=== PATIENT | male | born 1950 | race Caucasian/White ===

== ENCOUNTER 2018-08-24 08:58 | Day surgery (SDC) | payer OTHER ==
[2018-08-24] MEDS ORDERED: SOD CHLORIDE 0.9% 1,000 ML IV (10:00)
[2018-08-24] MEDS ORDERED: CEFAZOLIN 2 GM/50 ML (PMX) 50 ML IVPB (10:00)
[2018-08-24] MEDS ORDERED: DIPHENHYDRAMINE 50 MG INJ IV (11:30)
[2018-08-24] MEDS ORDERED: HYDROmorphONE 1 MG/5 ML IV SYRINGE IV (11:30)
[2018-08-24] MEDS ORDERED: FENTAnyl 50 MCG/ML VIAL IV ×3 (11:30)
[2018-08-24] MEDS ORDERED: ALBUTEROL 0.083% (NEB) 2.5 MG/3 ML AMP HHN (11:30)
[2018-08-24] MEDS ORDERED: METOCLOPRAMIDE 10 MG INJ IV (11:30)
[2018-08-24] MEDS ORDERED: ROPIVACAINE 0.5 % 30 ML VIAL (11:51)
[2018-08-24] MEDS ORDERED: FENTAnyl 50 MCG/ML VIAL (11:51)
[2018-08-24] MEDS ORDERED: PHENYLephrine 10 MG INJ (12:28)
[2018-08-24] MEDS ORDERED: PHENYLephrine (100 MCG/ML) 5ML SYG (12:28)
[2018-08-24] MEDS ORDERED: CEFAZOLIN 1 GM INJ (12:57)
[2018-08-24] MEDS ORDERED: PROPOFOL 20 ML (12:57)
[2018-08-24] MEDS ORDERED: GLYCOPYRROLATE 0.4 MG INJ (12:57)
[2018-08-24] MEDS ORDERED: NEOSTIGMINE 10 MG INJ (12:57)
[2018-08-24] MEDS ORDERED: ROCURONIUM 50 MG INJ (12:57)
[2018-08-24] MEDS ORDERED: HYDROCODONE/APAP (5/325) TAB PO (13:00)
[2018-08-24] MEDS: HYDROmorphONE 1 MG/5 ML IV SYRINGE IV ×2 (13:24→13:39)
[2018-08-24] MEDS: MEPERIDINE 25 MG INJ IV (13:25)
[2018-08-24] MEDS: ONDANSETRON 4 MG INJ IV (13:25)
== END 2018-08-24 14:25 | disposition home or self-care (01) ==
LOC: SDS 08:58
DX: K80.20 Calculus of gallbladder without cholecystitis without obstruction (principal); I10 Essential (primary) hypertension; E78.5 Hyperlipidemia, unspecified; E11.9 Type 2 diabetes mellitus without complications
CPT/HCPCS: 47562; 82962; 88304

== ENCOUNTER 2018-08-26 06:16 | Emergency (ER) | payer OTHER ==
[2018-08-26 07:02] LABS: ADD MAN DIFF? NO
[2018-08-26 07:13] LABS: WHITE BLOOD COUNT 11.8 10^3/ul (4.8-10.8)
[2018-08-26 07:13] LABS: BASOPHILS % 0.3 % (0.0-2.0); EOSINOPHILS # 0.1 10^3/ul (0.0-0.5); EOSINOPHILS % 0.6 % (0.0-7.0); HEMATOCRIT 36.6 % (42.0-52.0); HEMOGLOBIN 12.4 g/dl (14.0-18.0); LYMPHOCYTES % 8.4 % (15.0-51.0); MEAN CORPUSCULAR HEMOGLOBIN 30.4 pg (29.0-33.0); MEAN CORPUSCULAR HGB CONC 33.9 g/dl (32.0-37.0); MEAN CORPUSCULAR VOLUME 89.7 fl (82.0-101.0); MEAN PLATELET VOLUME 9.6 fl (7.4-10.4); MONOCYTE # 0.6 10^3/ul (0.3-0.9); MONOCYTES % 4.9 % (0.0-11.0); PLATELET COUNT 161 10^3/UL (140-415); RED BLOOD COUNT 4.08 10^6/ul (4.70-6.10)
[2018-08-26 07:28] LABS: ADD UMIC NO; UR ASCORBIC ACID NEGATIVE (NEGATIVE); UR BILIRUBIN (Dip) NEGATIVE (NEGATIVE); UR BLOOD (Dip) NEGATIVE (NEGATIVE); UR CLARITY CLEAR (CLEAR); UR COLOR YELLOW (YELLOW); UR GLUCOSE (Dip) NEGATIVE (NEGATIVE); UR KETONES (Dip) TRACE mg/dL (NEGATIVE); UR LEUKOCYTE ESTERASE (Dip) NEGATIVE Leu/ul (NEGATIVE); UR NITRITE (Dip) NEGATIVE (NEGATIVE); UR SPECIFIC GRAVITY (Dip) 1.008 (1.003-1.030); UR TOTAL PROTEIN (Dip) NEGATIVE (NEGATIVE); UR UROBILINOGEN (Dip) NEGATIVE (NEGATIVE)
[2018-08-26 07:31] LABS: ANION GAP 12 (5-13); BLOOD UREA NITROGEN 15 mg/dl (7-20); CALCIUM 9.4 mg/dl (8.4-10.2); CARBON DIOXIDE 20 mmol/L (21-31); CHLORIDE 104 mmol/L (97-110); CREATININE 1.15 mg/dl (0.61-1.24); Estimated GFR > 60 mL/min (>60); GLUCOSE 184 mg/dl (70-220); POTASSIUM 4.1 mmol/L (3.5-5.1); SODIUM 136 mmol/L (135-144)
== END 2018-08-26 08:20 | disposition home or self-care (01) ==
LOC: E/R 06:16
DX: R33.9 Retention of urine, unspecified (principal); I10 Essential (primary) hypertension; E11.9 Type 2 diabetes mellitus without complications; Z79.82 Long term (current) use of aspirin; Z79.84 Long term (current) use of oral hypoglycemic drugs
CPT/HCPCS: 36415; 80048; 81003; 85025; 87086; 99283-25